=== PATIENT | female | born 1995 | race Caucasian/White ===

== ENCOUNTER 2018-11-10 19:27 | Emergency (ER) | payer BC ==
[~2018-11-10] VITALS: Ht 165.1 cm; Wt 86.4 kg
[2018-11-10 19:29] VITALS: BP 149/93; TEMP 97.8
[2018-11-10] MEDS ORDERED: TUSS PO (20:46)
[2018-11-10] MEDS ORDERED: ZOFRAN ODT4 MG PO (20:46)
[2018-11-10 21:18] VITALS: PULSE 92
== END 2018-11-10 21:19 | disposition home or self-care (01) ==
LOC: COL.ER 19:27
DX: J10.1 Influenza due to other identified influenza virus with other respiratory manifestations (principal)

== ENCOUNTER 2018-12-18 22:59 | Emergency (ER) | payer BC ==
[~2018-12-18] VITALS: Ht 165.1 cm; Wt 90.0 kg
[~2018-12-18 22:59] MED LIST: TUSS PO; ZOFRAN ODT4 MG PO
[2018-12-18 23:05] VITALS: TEMP 99
[2018-12-19 03:44] VITALS: BP 136/92; PULSE 89
== END 2018-12-19 03:44 | disposition home or self-care (01) ==
LOC: COL.ER 22:59
DX: F45.8 Other somatoform disorders (principal)

== ENCOUNTER 2019-09-24 08:19 | Emergency (ER) | payer BC ==
[~2019-09-24] VITALS: Ht 165.1 cm; Wt 100.5 kg
[2019-09-24 08:28] VITALS: TEMP 96.7
[2019-09-24 09:23] LABS: HEMATOCRIT 40.6 % (37.0-47.0); HEMOGLOBIN 13.9 g/dl (12.5-16.0); MEAN CELL VOLUME 82 fl (80.0-100.0); MEAN CORPUSCULAR HEMOGLOBIN 28 pg (27.0-31.0); MEAN CORPUSCULAR HGB CONC 34 g/dl (33.0-37.0); PLATELET COUNT 401 K/mm3 (130-400); RED BLOOD COUNT 4.95 M/mm3 (4.10-5.30); REDCELL DISTRIBUTION WIDTH-CV 12.5 % (11.5-14.5)
[2019-09-24 09:35] LABS: ALBUMIN 4.7 gm/dL (3.5-5.0); BILIRUBIN,TOTAL 0.4 mg/dL (0.0-1.0); CALCIUM 9.5 mg/dL (8.4-10.2); CREATININE, serum 0.56 (0.52-1.25); POTASSIUM 3.6 mmol/L (3.4-5.0); TOTAL PROTEIN 8.7 gm/dL (6.4-8.2)
[2019-09-24 09:56] LABS: COLLECTION METHOD CLEAN CATCH
[2019-09-24 09:59] LABS: BAND 4 % (0-10); LYMPHOCYTE 4 % (20.0-51.0); NEUTROPHILS 90 % (42.0-75.2); PLATELET ESTIMATE NORMAL (NORMAL)
[2019-09-24 10:10] LABS: MUCOUS Present /lpf; PH 6 (5-8); URINE APPEARANCE Cloudy; URINE BACTERIA Moderate /hpf; URINE BILIRUBIN Negative (NEGATIVE); URINE BLOOD 1+ (NEGATIVE); URINE COLOR Yellow; URINE GLUCOSE Negative (NEGATIVE); URINE KETONE 2+ (NEGATIVE); URINE LEUKOCYTE ESTERASE 3+ (NEGATIVE); URINE NITRATE Negative (NEGATIVE); URINE PROTEIN(semi-quant) 1+ (NEGATIVE); URINE UROBILINOGEN Negative (NEGATIVE)
[2019-09-24 17:40] VITALS: BP 136/78; PULSE 92
== END 2019-09-24 17:40 | disposition home or self-care (01) ==
LOC: COL.ER 08:19
PROVIDERS: Emergency Medicine
DX: O26.891 Other specified pregnancy related conditions, first trimester (principal); D72.829 Elevated white blood cell count, unspecified; R10.9 Unspecified abdominal pain; R10.823 Right lower quadrant rebound abdominal tenderness; Z3A.09 9 weeks gestation of pregnancy
CPT/HCPCS: A4216; J0696; J2270; J2405; J7030

== ENCOUNTER → 2019-11-18 | Outpatient (CLI) | payer BC | LOC: COL.LAB 12:28 | DX: O28.8 Other abnormal findings on antenatal screening of mother (principal); Z67.31 Type AB blood, Rh negative; Z3A.16 16 weeks gestation of pregnancy; R76.8 Other specified abnormal immunological findings in serum ==

== ENCOUNTER 2020-04-03 17:13 | Outpatient (CLI) | payer MEDICAID ==
[~2020-04-03] VITALS: Ht 165.1 cm; Wt 96.8 kg
[2020-04-03 17:03] VITALS: BP 133/72; PULSE 103; TEMP 98.2
[2020-04-03 17:17] VITALS: BP 133/72; PULSE 103; TEMP 97.8
[2020-04-03] MEDS ORDERED: PRENATAL (17:22)
--- NOTE | 2020-04-03 17:41 | NUR ---
1700 PATIENT HERE FOR COMPLAINTS OF FEELING WET TODAY. NO CONTRACTIONS FELT BY PATIENT AND BABY ACTIVE. EFM ON FHT 148 GOOD ACCELERATIONS, BABY VERY ACTIVE. OCCASIONAL IRREGULAR CONTRACTIONS NOT FELT BY PATIENT. AMNIOTRACE NEGATIVE. SVE 0/40/HIGH. ASSESSMENT COMPLETED.
[2020-04-03 17:49] VITALS: BP 122/68; PULSE 95
--- NOTE | 2020-04-03 17:51 | NUR ---
ALL DISCHARGE INSTRUCTIONS GIVEN TO PATIENT . SVE UNCHANGED. ORDERS TO DISMISS TO HOME FROM DR RESENDIZ.
== END 2020-04-03 17:34 | disposition home or self-care (01) ==
LOC: LDRO 17:13
DX: Z34.03 Encounter for supervision of normal first pregnancy, third trimester (principal); Z3A.36 36 weeks gestation of pregnancy

== ENCOUNTER 2020-04-11 16:58 | Outpatient (CLI) | payer BC ==
[~2020-04-11] VITALS: Ht 167.6 cm; Wt 97.7 kg
[~2020-04-11 16:58] MED LIST changes: +PRENATAL
--- NOTE | 2020-04-11 17:15 | NUR ---
1715-G1 37[address] Dorsey ambulatory to LR 3 with complaint of contractions every 7 min since 0200. Patient denies VB or decreased movement. Reports some discharge but does not feel if is her amniotic fluid. 172-Amnitest neg, SVE /-3. 1750-Lizzy EARL, see physician notification. 183-SVE unchanged, Off EFM. Updated on plan to discharge home. 184-Dishcarge instructions reviewed by MEGAN Burton with patient. 184-Ambulatory off unit with spouse.
[2020-04-11 17:30] VITALS: BP 145/62; PULSE 88; TEMP 98.9
[2020-04-11 17:45] VITALS: BP 120/71; PULSE 88
== END 2020-04-11 18:45 | disposition home or self-care (01) ==
LOC: LDRO 16:58 → LDR 18:18 → LDRO 18:45
DX: O62.9 Abnormality of forces of labor, unspecified (principal); Z3A.37 37 weeks gestation of pregnancy
CPT/HCPCS: OP

== ENCOUNTER 2020-04-19 02:25 | Outpatient (CLI) | payer BC ==
[~2020-04-19] VITALS: Ht 167.6 cm; Wt 96.8 kg
--- NOTE | 2020-04-19 02:20 | NUR ---
0220- PT PRESENTS TO LDR COMPLAINING OF CONTRACTIONS, AMBULATORY TO ROOM LR4, CHANGED INTO GOWN. 0227- EFM APPLIED, PT HAS NEGATIVE COVID SCREE, DENIES VAGINAL BLEEDING. STATES SHE HAS BEEN KUMAR SINCE 1999, HAS HAD SOME INCREASED DISCHARGE BUT DOESN'T KNOW IF HER WATER HAS BROKEN. 0235- AMNITRACE IS NEGATIVE, NO POOLING OF FLUID. SVE BY THIS NURSE 2. PLAN OF CARE DISCUSSED FOR LABOR CHECK AND QUESTIONS ANSWERED. 0245- NURSING ADMISSION HISTORY AND ASSESSMENT COMPLETE. 0255- PT OFF MONITORS TO AMBULATE IN HALLS. 0325- PT BACK TO BED AND MONITORS APPLIED. SHE STATES HER CONTRACTIONS FEEL MORE INTENSE. 0340- SVE BY THIS NURSE WITH NO CHANGE. PT GIVEN OPTION TO BE OBSERVED FOR ANOTHER HOUR AND HAVING CERVIX RECHECKED OR CALL DR FOR DISMISSAL AT THIS TIME. PT OPTS TO GO HOME AND LABOR AT HOME FOR AWHILE. 0342- DR BOATENG CALLED CHARTED. ORDER FOR DISMISSAL. 0355- PT OFF MONITORS FOR DISMISSAL. DISMISSAL INSTRUCTIONS GIVEN AND PT VERBALIZES UNDERSTANDING. 0405- PT DISMISSED TO HOME AMBULATORY ACCOMPANIED BY .
[2020-04-19 03:00] VITALS: BP 129/77; PULSE 82; TEMP 97.7
[2020-04-19 03:30] VITALS: BP 130/60; PULSE 72
== END 2020-04-19 04:05 | disposition home or self-care (01) ==
LOC: LDRO 02:25
DX: O62.9 Abnormality of forces of labor, unspecified (principal); Z3A.38 38 weeks gestation of pregnancy

== ENCOUNTER 2020-04-19 09:10 | Inpatient (IN) | payer BC, MEDICAID ==
[2020-04-19] VITALS (32 sets, daily range): BP systolic 89–144; BP diastolic 47–81; PULSE 56–118; TEMP 97.7–98.8
[~2020-04-19] VITALS: Ht 167.6 cm; Wt 97.7 kg
--- NOTE | 2020-04-19 09:00 | NUR ---
Pt arrives on unit via wheelchair with spouse for increase of frequency and painful ctx. G1L0 at 38.5 weeks gestation. Changed into clean gown. EFM and toco applied. VSS. SVE per this RN 5- FABIAN. Dr. Ballard notified. Orders for admission. IV started in LH. Labs drawn. LR infusing. Consents singed. Admission assessment completed. Pt requesting epidural. Aliza Calix CRNA notified. 0915-Pt sitting at EOB for epidural placement. Difficulty tracing FHR due to maternal positon. FHR audible.
[2020-04-19 09:40] LABS: BASO # 0.1 (0.0-0.2); BASO % 0.4 % (0.0-2.0); EOS # 0.4 (0.0-0.7); EOS % 2.2 % (0-4.0); GRAN # 12.4 (1.4-6.5); GRAN % 73.3 % (42.2-75.2); HEMATOCRIT 40.3 % (37.0-47.0); LYMPH # 2.9 (1.2-3.4); LYMPH % 16.8 % (20.0-51.0); MEAN CELL VOLUME 77 fl (80.0-100.0); MEAN CORPUSCULAR HEMOGLOBIN 25 pg (27.0-31.0); MEAN CORPUSCULAR HGB CONC 32 g/dl (33.0-37.0); MEAN PLATELET VOLUME 10.7 fl (7.4-10.4); MONO # 1.1 (0.1-0.6); MONO % 6.6 % (1.7-9.3); PLATELET COUNT 327 K/mm3 (130-400); RED BLOOD COUNT 5.25 M/mm3 (4.10-5.30)
--- NOTE | 2020-04-19 09:50 | NUR ---
Dr Ballard here and at bedside. US performed, vertex position. Pt repositioned to right side.
--- NOTE | 2020-04-19 11:40 | NUR ---
Dr Ballard here and at bedside. SVE: . Pt has SROM'd at some point between 1100 and now. Meconium fluid noted on pad. Pericare done and pt repositioned to sitting up in bed.
--- NOTE | 2020-04-19 12:10 | NUR ---
Questionable 5 minute decel down to 120bpm. Moderate variability noted. Pt repositioned to right lateral.
--- NOTE | 2020-04-19 12:50 | NUR ---
Physician here, reviews monitor strip. SVE: /0. Continue to monitor at this time, no new orders.
--- NOTE | 2020-04-19 13:58 | NUR ---
SVE: complete +2. Pt feeling pressure. Prepped for pushing and instructions given. 1404:Dr Ballard called and notified of pt complete and will begin pushing. 1414:Pt begins to push. 3 decelerations noted with pushing. FHR decreased to 100bpm for 30-60 seconds returning to baseline inbetween. Pt making good progress with pushing. 1443:Dr Ballard called for delivery. He is on his way.
--- NOTE | 2020-04-19 15:00 | NUR ---
Physician here and pt prepped. Continues to push with contractions. 1514:Deceleration noted, FHR decreases to 100-110bpm intermittently for 2 minutes. 1516: of infants head and shoulders. 1522:Spontaneous delivery of placenta. LR with pitocin infusing per protocol at 333ml/hr. Cord gasses collected per physician for meconium fluid. Cord clamped and cut and in care of Raina GUZMAN/Lucia GUZMAN. 2nd degree laceration repaired. Fundus firm, bleeding WNL. Infant to mothers abd and skin to skin.
--- NOTE | 2020-04-19 17:45 | NUR ---
Pt unable to ambulate at this time, left leg still numb from epidural. Straight cath used, 500cc urine return. Fundus firm, bleeding WNL. New pads and ice pack in place.
--- NOTE | 2020-04-19 18:50 | NUR ---
Sitting up in bed at this time eating. Motrin administered. Denied questions or concerns. POC reviewed.
--- NOTE | 2020-04-19 19:30 | NUR ---
Assessment and VS complete at this time. Reports pain unchanged from the time motrin was administered. Denied wanting anything further for pain at this time. Ambulated well to restroom. Unable to void at this time. Ice pack to perineum. Pericare provided. To wheelchair. Pt and significant other to PP room 219. Oriented to room. returned to room. Attempting to breastfeed. Denied questions or concerns.
[2020-04-20 05:00] VITALS: BP 116/58; PULSE 80; TEMP 98.9
[2020-04-20 06:36] LABS: HEMATOCRIT 34.1 % (37.0-47.0); HEMOGLOBIN 10.9 g/dl (12.5-16.0)
[2020-04-20 09:20] VITALS: BP 129/75; PULSE 76; TEMP 98.2
[2020-04-20 11:55] VITALS: BP 122/66; PULSE 66; TEMP 97.9
[2020-04-20 16:20] VITALS: BP 107/48; PULSE 71; TEMP 98.4
[2020-04-20 19:45] VITALS: BP 124/74; PULSE 85; TEMP 98.3
[2020-04-21 06:50] VITALS: BP 118/55; PULSE 76; TEMP 98.2
[2020-04-21] MEDS ORDERED: PERCOCET 325 MG1 TA2 PO (10:19)
[2020-04-21] MEDS ORDERED: IBU600 MG PO (10:19)
--- NOTE | 2020-04-21 11:30 | NUR ---
Rests in bed, alert. Discharge instructions given. Verbalizes understanding.
== END 2020-04-21 12:15 | disposition home or self-care (01) | DRG 807 ==
LOC: OB 09:10 → LDR 09:10 → OB 19:45
PROVIDERS: ADMIT Obstetrics & Gynecology
PROC: 10E0XZZ Delivery of Products of Conception, External Approach (ICD-10-PCS; principal; 2020-04-19)
PROC: 3E033VJ Introduction of Other Hormone into Peripheral Vein, Percutaneous Approach (ICD-10-PCS; 2020-04-19)
PROC: 0KQM0ZZ Repair Perineum Muscle, Open Approach (ICD-10-PCS; 2020-04-19)
DX: O99.344 Other mental disorders complicating childbirth (principal); Z37.0 Single live birth; F41.8 Other specified anxiety disorders; O77.0 Labor and delivery complicated by meconium in amniotic fluid; O99.214 Obesity complicating childbirth; E66.9 Obesity, unspecified; O70.1 Second degree perineal laceration during delivery; Z3A.38 38 weeks gestation of pregnancy
CPT/HCPCS: J2590; J7120

== ENCOUNTER 2020-05-14 18:58 | Emergency (ER) | payer BC, MEDICAID ==
[~2020-05-14] VITALS: Ht 165.1 cm; Wt 96.4 kg
[~2020-05-14 18:58] MED LIST changes: +IBU600 MG PO; +PERCOCET 325 MG1 TA2 PO
[2020-05-14 19:23] VITALS: BP 121/77; PULSE 87; TEMP 98.3
[2020-05-14] MEDS ORDERED: CLEOCIN HCL300 MG PO (20:21)
== END 2020-05-14 20:39 | disposition home or self-care (01) ==
LOC: COL.ER 18:58
DX: K08.89 Other specified disorders of teeth and supporting structures (principal)

== ENCOUNTER 2021-02-02 06:36 | Outpatient (CLI) | payer MEDICAID ==
[~2021-02-02] VITALS: Ht 165.1 cm; Wt 98.6 kg
[~2021-02-02 06:36] MED LIST changes: +CLEOCIN HCL300 MG PO
--- NOTE | 2021-02-02 06:40 | NUR ---
Patient arrives ambulatory from ER with complaints of increased discharge, lower back pain, and decreased movement since yesterday at 1800. Patient denies vaginal bleeding. Changes into gown ,EFM explained and placed. VS obtained. 0650- Amniotrace negative, SVE per Magnus Sosa RN closed/thick/high with no discharge noted on exam glove. Patient repositioned WL and updated on plan of care. Assessment completed. 0655 and 0705- Patient reports kicks. Very reassured. 0710- See physician notification. 0715- Patient taken off EFM after reviewing FHR strip with physician. Reviewed discharge instructions, labor precuations and kick counts. Patient agrees and will follow up as shceduled.
[2021-02-02] MEDS ORDERED: PRENATA1 CTB PO (06:59)
[2021-02-02] MEDS ORDERED: LEXAPRO 10MG10 MG PO (06:59)
[2021-02-02 07:00] VITALS: BP 140/83; PULSE 104
[2021-02-02 07:15] VITALS: BP 123/64; PULSE 80; TEMP 98.7
== END 2021-02-02 07:30 | disposition home or self-care (01) ==
LOC: LDRO 06:36 → LDR 06:40 → LDRO 07:30
DX: O36.8120 Decreased fetal movements, second trimester, not applicable or unspecified (principal); O99.891 Other specified diseases and conditions complicating pregnancy; M54.9 Dorsalgia, unspecified; N89.8 Other specified noninflammatory disorders of vagina; Z3A.24 24 weeks gestation of pregnancy
CPT/HCPCS: OP

== ENCOUNTER 2021-04-06 21:36 | Outpatient (CLI) | payer MEDICAID ==
[~2021-04-06] VITALS: Ht 165.1 cm; Wt 99.1 kg
[~2021-04-06 21:36] MED LIST changes: +LEXAPRO 10MG10 MG PO; +PRENATA1 CTB PO
--- NOTE | 2021-04-06 21:45 | NUR ---
2144- PT PRESENTS TO LDR COMPLAINING OF DIZZINESS, NAUSEA/VOMITTING, AND NOT "FEELING WELL." AMBULATORY TO ROOM LR5, CHANGED INTO GOWN. 2157- EFM X2 APPLIED. BABY DIFFICULT TO TRACE DUE TO MOVEMENT. PT DENIES CONTRACTIONS, LEAKING FLUID, OR VAGINAL BLEEDING. STATES SHE IS FEELING BABY MOVE "ALOT." PLAN OF CARE DISCUSSED INCLUDING ORDERS DR CHARLTON ALREADY CALLED INT. PT AGREEABLE WITH PLAN. 5- IV START TO LEFT WRIST CHARTED, BLOOD DRAWN FOR LABS. D5LR INFUSING. ZOFRAN GIVEN ORDERED. 2229- NURSING ADMISSION HISTORY AND ASSESSMENT COMPLETE. 225- LAB RESULTS BACK 2252- DR CHARLTON CALLED AND UPDATED CHARTED. ORDER FOR ROCEPHIN AND DISMISSAL. 2254- PT UPDATED ON PLAN OF CARE. UP TO BATHROOM. 2300- PT BACK ON MONITORS. DIFFICULTY MONITORING BABY DUE TO MOVEMENT. NURSE AT BEDSIDE ADJUSTING MONITORS. 2320- DIFFICULTY TRACING BABY DUE TO MOVEMENT. EFM OFF. 2325- NURSE HOLDING MONITOR IN PLACE TO VERIGY HEART TONES FOR DISMISSAL. ROCEPHIN GIVEN. 2330- IV SITE DC'D WITH CANULA INTACT. PT OFF MONITORS FOR DISMISSAL. 2340- DISMISSAL INSTRUCTIONS GIVEN AND PT VERBALIZES UNDERSTANDING. PT DISMISSED TO HOME AMBULATORY ACCOMPANIED BY .
[2021-04-06 22:26] LABS: COLLECTION METHOD CLEAN CATCH
[2021-04-06 22:29] LABS: BASO # 0.1 (0.0-0.2); BASO % 0.3 % (0.0-2.0); EOS # 0.3 (0.0-0.7); EOS % 1.8 % (0-4.0); GRAN # 10.3 (1.4-6.5); HEMATOCRIT 33.1 % (37.0-47.0); LYMPH # 2.6 (1.2-3.4); LYMPH % 18.4 % (20.0-51.0); MEAN CELL VOLUME 73 fl (80.0-100.0); MEAN CORPUSCULAR HEMOGLOBIN 24 pg (27.0-31.0); MEAN CORPUSCULAR HGB CONC 33 g/dl (33.0-37.0); MEAN PLATELET VOLUME 10.7 fl (7.4-10.4); MONO % 7.1 % (1.7-9.3); PLATELET COUNT 327 K/mm3 (130-400); RED BLOOD COUNT 4.53 M/mm3 (4.10-5.30); REDCELL DISTRIBUTION WIDTH-CV 14.8 % (11.5-14.5)
[2021-04-06 22:30] VITALS: BP 116/66; PULSE 80; TEMP 98.7
[2021-04-06 22:39] LABS: ALBUMIN 3.8 gm/dL (3.5-5.0); BILIRUBIN,TOTAL 0.3 mg/dL (0.0-1.0); CALCIUM 8.9 mg/dL (8.4-10.2); CREATININE, serum 0.46 (0.52-1.25); POTASSIUM 3.6 mmol/L (3.4-5.0); TOTAL PROTEIN 7.6 gm/dL (6.4-8.2)
[2021-04-06 22:40] LABS: MUCOUS Present /lpf; PH 7 (5-8); URINE APPEARANCE Hazy; URINE BACTERIA Rare /hpf; URINE BILIRUBIN Negative (NEGATIVE); URINE BLOOD Negative (NEGATIVE); URINE COLOR Yellow; URINE GLUCOSE Negative (NEGATIVE); URINE KETONE Negative (NEGATIVE); URINE LEUKOCYTE ESTERASE 3+ (NEGATIVE); URINE NITRATE Negative (NEGATIVE); URINE PROTEIN(semi-quant) Negative (NEGATIVE); URINE UROBILINOGEN Negative (NEGATIVE); URINE WBC 20-50 /hpf
[2021-04-06] MEDS ORDERED: LEXAPRO 10MG10 MG PO (22:45)
== END 2021-04-06 23:40 | disposition home or self-care (01) ==
LOC: LDRO 21:36 → LDR 21:57 → LDRO 23:40
PROVIDERS: Obstetrics & Gynecology
DX: O26.893 Other specified pregnancy related conditions, third trimester (principal); R42 Dizziness and giddiness; Z3A.33 33 weeks gestation of pregnancy
CPT/HCPCS: OP; J0696; J2405; J7121

== ENCOUNTER 2021-04-28 09:35 | Outpatient (CLI) | payer MEDICAID ==
[~2021-04-28] VITALS: Ht 165.1 cm; Wt 99.1 kg
--- NOTE | 2021-04-28 09:45 | NUR ---
PATIENT HERE IN WHEELCHAIR FROM EMERGENCY ROOM. PATIENT STATES SHE HAS BEEN HAVING CONTRACTIONS SINCE 0500. PATIENT HERE WITH SPOUSE, KAREN. PATIENT DENIES BLEEDING AND LEAKING OF FLUID. ASKED PATIENT IF SHE HAS NEVER HAD AN STD BUT TESTS POSTIIVE TO THE [facility] DUE TO AN AUTOIMMUNE ISSUE THAT DR CHARLTON TESTED IN THE 2019 .
[2021-04-28 10:00] VITALS: BP 129/60; PULSE 77; TEMP 98.1
--- NOTE | 2021-04-28 10:10 | NUR ---
PATIENT STATES HER CONTRACTIONS HAVE STOPPED AND ARE NOT PAINFUL. PATIENT STATES SHE WOULD LIKE TO GO HOME DUE TO NOT PREPARED FOR BABY
[2021-04-28 10:30] VITALS: BP 105/52; PULSE 86
[2021-04-28 11:00] VITALS: BP 90/52; PULSE 84
== END 2021-04-28 11:15 | disposition home or self-care (01) ==
LOC: LDRO 09:35 → LDR 09:35 → LDRO 11:15
DX: O62.9 Abnormality of forces of labor, unspecified (principal); Z3A.36 36 weeks gestation of pregnancy
CPT/HCPCS: OP

== ENCOUNTER 2021-05-05 23:02 | Outpatient (CLI) | payer MEDICAID ==
[~2021-05-05] VITALS: Ht 165.1 cm; Wt 98.2 kg
--- NOTE | 2021-05-05 23:30 | NUR ---
G2L1 at 37.2 weeks gestation to L&D with c/o decreased movement. She states that baby's movements have been decreased throughout the day. She denies contractions, leaking of fluid, or vaginal bleeding. EFMs explained and applied. FHR 140 bpm and reactive. Patient expresses reassurance. She states that she was doing FKCs at home and was getting 5-6 movements in 1 hour. Advised patient that we would like to see 10 movements in 2 hours with FKCs. Patient states understanding.
[2021-05-05 23:50] VITALS: BP 128/79; PULSE 83; TEMP 98.2
--- NOTE | 2021-05-05 23:58 | NUR ---
Discharge instructions given to pt and spouse who verbalize their understanding. Pt ambulatory off unit and home with spouse.
== END 2021-05-05 23:58 | disposition home or self-care (01) ==
LOC: LDRO 23:02
DX: O36.8130 Decreased fetal movements, third trimester, not applicable or unspecified (principal); Z3A.37 37 weeks gestation of pregnancy

== ENCOUNTER 2021-05-10 16:58 | Inpatient (IN) | payer MEDICAID ==
[~2021-05-10] VITALS: Ht 165.1 cm; Wt 99.1 kg
[2021-05-10] VITALS (10 sets, daily range): BP systolic 102–150; BP diastolic 58–79; PULSE 75–97; TEMP 98.6–99
--- NOTE | 2021-05-10 17:05 | NUR ---
Patient presents to LDR room 1 per wheelchair accompanied by . patient reports uterine cramping that started today at 1500. States had office appointment at 0830 this morning and cervix was closed. Patient denies vaginal bleeding or leaking of fluid, reports active movememnt. On arrival to room, patient breathing through contractions. EFM on and plan of care discussed including SVE and observation of labor
--- NOTE | 2021-05-10 18:45 | NUR ---
ADMIT PT TO LABOR AND DELIVERY PER , REPEAT SVE SHOWING APPROPRIATE CERVICAL CHANGE /-2, SEE PHYS. NOTIFICATION. PT ORIENTED TO LABOR ROOM, CONSENTS SIGNED, IV PLACED IN LEFT HAND. VERBAL ORDERS FROM THAT PT MAY HAVE EPIDURAL WHEN SHE IS READY. PT DENIES ANY LEAKING OR GUSHING OF FLUIDS, REPORTS CONTRACTIONS STARTING TODAY AROUND 1500 Q3 MIN APART, AND REPORTS POSITIVE MOVEMENT. NO FURTHER QUESTIONS OR CONCERNS AT THIS TIME.
[2021-05-10 19:50] LABS: BASO # 0.1 (0.0-0.2); BASO % 0.4 % (0.0-2.0); EOS # 0.2 (0.0-0.7); EOS % 1.5 % (0-4.0); GRAN # 10.9 (1.4-6.5); GRAN % 75.2 % (42.2-75.2); HEMOGLOBIN 11.6 g/dl (12.5-16.0); LYMPH # 2.4 (1.2-3.4); LYMPH % 16.7 % (20.0-51.0); MEAN CELL VOLUME 73 fl (80.0-100.0); MEAN CORPUSCULAR HEMOGLOBIN 24 pg (27.0-31.0); MEAN CORPUSCULAR HGB CONC 32 g/dl (33.0-37.0); MEAN PLATELET VOLUME 11.6 fl (7.4-10.4); MONO # 0.8 (0.1-0.6); MONO % 5.7 % (1.7-9.3); PLATELET COUNT 300 K/mm3 (130-400); RED BLOOD COUNT 4.89 M/mm3 (4.10-5.30); REDCELL DISTRIBUTION WIDTH-CV 15.3 % (11.5-14.5)
[2021-05-10 19:52] LABS: HEMATOCRIT 35.9 % (37.0-47.0)
--- NOTE | 2021-05-10 21:38 | NUR ---
PT REQUESTING BRIEF BREAK IN MONITORING TO BE ABLE TO AMBULATE AROUND ROOM FOR PAIN CONTROL MEASURES, CATEGORY 1 STRIP THROUGHOUT THIS SHIFT UP TO THIS POINT, CONTRACTIONS REGULAR AND INCREASING IN PAIN, PT EDUCATED TO NOTIFY THIS NURSE WITH ANY SIGNIFICANT CHANGES, WE WILL PUT PT BACK ON MONITORS IN APPROX 20-30 MINUTES TO REASSESS
--- NOTE | 2021-05-10 23:10 | NUR ---
[id number]: PT OFF OF MONITORS TO AMBULATE IN HALLWAY
[2021-05-11] VITALS (33 sets, daily range): BP systolic 86–146; BP diastolic 46–89; PULSE 66–136; TEMP 98–99.4
--- NOTE | 2021-05-11 02:16 | NUR ---
ROLES AT BEDSIDE, SVE /-2, AROM W/ CLEAR FLUID AT 0216, PT REQUESTS EPIDURAL FOLLOWING THIS ENCOUNTER, AFEBRILE AT TIME OF RUPTURE, DENIES FURTHER QUESTIONS OR CONCERNS, WILL NOTIFY JASON ABERNATHY OF EPIDURAL REQUEST
--- NOTE | 2021-05-11 03:05 | NUR ---
PT ASSISTED TO SITTING POSITION ON EDGE OF BEDJASON CRNA AT BEDSIDE DISCUSSING AND EDUCATING ON EPIDURAL PLACEMENT AND PROCEDURE, PT AGREEABLE TO PLAN, TEST DOSE 0305, VITAL SIGNS STABLE, INTERMITTENT TRACING DUE TO MATERNAL POSITION, TOLERATED PROCEDURE WELL, REPORTS RELIEF WITHIN 2 CONTRACTIONS
--- NOTE | 2021-05-11 04:06 | NUR ---
0406: PT SYMPTOMATIC C/O DIZZINESS AND NAUSEA WITH HYPOTENSION FOLLOWING EPIDURAL PLACEMENT, 10MG EPHEDRINE GIVEN AT THIS TIME PER PROTOCOL 0420: PT REMAINS HYPOTENSIVE, C/O NAUSEA AND "FEELING WEAK AND SHAKY," 2ND DOSE OF 10MG EPHEDRINE GIVEN AT THIS TIME PER PROTOCOL, WILL CONTINUE TO MONITOR 0500: PT'S BLOOD PRESSURE STABLE, SLEEPING AND ASYMPTOMATIC AT THIS TIME, CONTINUE TO MONITOR PER JASON TRANSIT PLANNER
--- NOTE | 2021-05-11 05:55 | NUR ---
VERBAL ORDERS PER ROLES TO BEGIN PITOCIN PER PROTOCOL AT THIS TIME, PT AGREEABLE TO POC
--- NOTE | 2021-05-11 07:00 | NUR ---
FHR baseline 155-160 with moderate variability. Variable decelerations to deepak of 125 and early decelerations to deepak of 125 noted from 0630 to 0640. SVE and position changed performed due to patient c/o increased pressure and heart rate delelerations.
--- NOTE | 2021-05-11 08:30 | NUR ---
@ 0738 Cervix is complete @ 0731 Dr Julian called and notified complete and ready for delivery. States he is on his way in. @ 0743 Dr Julian arrives to R room 4 for delivery. Patient begins pushing at 0744. of head and body at 0747. Spontaneous delivery of placenta at 0748. Per Dr Julian: repair of 2nd degree laceration and EBL of 200
[2021-05-12 01:15] VITALS: BP 124/71; PULSE 88; TEMP 97.9
[2021-05-12 05:23] VITALS: BP 124/75; PULSE 64; TEMP 97.4
[2021-05-12 08:13] VITALS: BP 130/77; PULSE 74; TEMP 98.4
[2021-05-12] MEDS ORDERED: MOTRIN 800800 MG/TAB PO (08:26)
[2021-05-12] MEDS ORDERED: PERCOCET 325 MG1 TA2 PO (08:27)
== END 2021-05-12 13:20 | disposition home or self-care (01) | DRG 807 ==
LOC: LDRO 16:58 → LDR 17:05 → LDRO 18:41 → OB 18:42 → LDR 18:42 → OB 05-11 12:21
PROVIDERS: Obstetrics & Gynecology; ADMIT Obstetrics & Gynecology
PROC: 10E0XZZ Delivery of Products of Conception, External Approach (ICD-10-PCS; principal; 2021-05-10)
PROC: 0KQM0ZZ Repair Perineum Muscle, Open Approach (ICD-10-PCS; 2021-05-10)
PROC: 10907ZC Drainage of Amniotic Fluid, Therapeutic from Products of Conception, Via Natural or Artificial Opening (ICD-10-PCS; 2021-05-10)
DX: O99.344 Other mental disorders complicating childbirth (principal); Z37.0 Single live birth; F41.9 Anxiety disorder, unspecified; F32.9 Major depressive disorder, single episode, unspecified; O70.1 Second degree perineal laceration during delivery; Z3A.38 38 weeks gestation of pregnancy
CPT/HCPCS: J2405; J2590; J2791; J7120